=== PATIENT | male | born 1960 | race African-American/Black ===

== ENCOUNTER 2019-06-09 11:07 | Emergency (ER) | payer OTHER ==
[~2019-06-09] VITALS: Ht 182.9 cm; Wt 86.4 kg
[~2019-06-09 11:07] MED LIST: ALPR1TAB7 PO; IBUP-1542 PO; RIVA20TA5 PO
[2019-06-09 11:10] VITALS: Ht 182.9 cm; Wt 86.4 kg
[2019-06-09] MEDS ORDERED: KETOROLAC 15 MG INJ IV STA (11:27)
[2019-06-09] MEDS ORDERED: SOD CHLORIDE 0.9% 500 ML IV STA (11:27)
[2019-06-09] MEDS ORDERED: ENALAPRILAT 1.25 MG INJ IV ONE (11:30)
[2019-06-09 13:37] VITALS: BP 167/79; PULSE 81; RESP 17
== END 2019-06-09 13:38 | disposition home or self-care (01) ==
LOC: E/R 11:07
DX: S02.2XXA Fracture of nasal bones, initial encounter for closed fracture (principal); S62.646A Nondisplaced fracture of proximal phalanx of right little finger, initial encounter for closed fracture; S00.83XA Contusion of other part of head, initial encounter; T42.4X1A Poisoning by benzodiazepines, accidental (unintentional), initial encounter; I10 Essential (primary) hypertension; G93.40 Encephalopathy, unspecified; Y04.2XXA Assault by strike against or bumped into by another person, initial encounter; Z79.01 Long term (current) use of anticoagulants
CPT/HCPCS: 29130; 36415; 70486; 73130; 80053; 80307; 83690; 85025; 96374; 96375; 99285; J1885; J7040